=== PATIENT | female | born 1965 | race Caucasian/White ===

== ENCOUNTER → 2017-10-16 | Outpatient (CLI) | payer OTHER ==
--- NOTE | 2017-10-16 16:49 | WWHP ---
[facility] - HISTORY AND PHYSICAL CHIEF COMPLAINT: The patient is here for her routine gynecologic exam and mammogram. HPI: This is a 51-year-old, G2, P2, with an LMP of 2011. The patient is without gynecologic complaints and denies any postmenopausal bleeding. PAST MEDICAL HISTORY: Chronic left hip problems. MEDICATIONS: Xanax p.r.n. for insomnia that she states she uses this infrequently. Also, vitamin D 2000 units daily. ALLERGIES: No known drug allergies. PAST SURGICAL HISTORY: section with tubal ligation and abdominoplasty in the past. 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 SOCIAL HISTORY: She denies tobacco and drug use and has about 4 alcohol-containing drinks per year. She is a , but is now with her ex-, which was with her 1st marriage. She states she is not sexually active. 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 FAMILY HISTORY: Father had lung cancer. REVIEW OF SYSTEMS: She has lost about 10 pounds over the last year and this has been with diet and exercise. She denies respiratory, cardiac or GI problems. PHYSICAL EXAM: Blood pressure 119/68, height 5 feet 0 inches, weight 160 pounds, temperature 97.8, pulse 77, BMI 31. This is a well-developed, well-nourished, white female, who is alert and oriented x3, in no acute distress. HEENT: Within normal limits. NECK: Supple without mass or thyromegaly. CHEST AND LUNGS: Clear to auscultation. HEART: Regular rate and rhythm breasts are without mass or discharge. Axillary exam is negative for adenopathy. BACK: Negative for CVA tenderness. ABDOMEN: Soft, nontender, without palpable masses. PELVIC EXAM: External genitalia reveals mild atrophy without lesions. Cervix and vagina reveals mild atrophy without lesions. There is no evidence of prolapse. The uterus is mid position, nongravid size and nontender. There are no palpable adnexal masses or tenderness. Rectovaginal exam is negative for mass or tenderness and is negative for occult blood. EXTREMITIES: Nontender. IMPRESSION: 51-year-old menopausal female with normal gynecologic exam. PLAN: 1. Pap smear was performed. 2. Self breast examination was discussed. 3. Mammogram will be done today. 4. Osteoporosis prevention was discussed. 5. I have recommended screening colonoscopy. She states she will do this through her primary care physician, Dr. Hamlin. 6. She will return in 1 year. HERB / ADILIA: [id number] /
--- NOTE | 2017-10-17 10:21 | MM ---
Reason for exam: screening (asymptomatic). Last mammogram was performed 1 year and 1 month ago. History: Patient is postmenopausal. Took hormonal contraceptives for 1 year. Physical Findings: A clinical breast exam by your physician is recommended on an annual basis and results should be correlated with mammographic findings. MG Screening Mammo w CAD Bilateral CC and MLO view(s) were taken. Prior study comparison: September 12, 2016, bilateral MG screening mammo w CAD. September 07, 2015, bilateral MG screening mammo w CAD. There are scattered fibroglandular densities. No suspicious abnormality. No significant changes when compared with prior studies. ASSESSMENT: Negative, BI-RAD 1 RECOMMENDATION: Routine screening mammogram of both breasts in 1 year.
== END | disposition home or self-care (01) ==
LOC: WWCWWP 15:11
PROVIDERS: ATTEND Obstetrics & Gynecology
DX: Z12.31 Encounter for screening mammogram for malignant neoplasm of breast (principal)

== ENCOUNTER → 2018-08-08 | Outpatient (CLI) | payer OTHER ==
[2018-08-08 13:28] VITALS: PULSE 79; RESP 16
[2018-08-08 13:33] VITALS: BP 136/83
--- NOTE | 2018-08-08 13:49 | P.PN ---
Subjective Progress Note Date: 08/08/18 This is a 52-year-old female with history of left hip pain mostly on the lateral aspect of the left hip and sometimes wraps around to the left groin anteriorly. She does get some mild lower back pain from time to time but this is not her main complaint. The patient denies any numbness or tingling in the lower extremities or any weakness. She also denies any bowel or bladder dysfunction. She had a greater trochanter bursa steroid injection last year in our clinic which lasted for about one year with very good pain relief. Her lumbar spine MRI that was done in 2014 showed significant facet arthropathy at L4 5 level. her left hip pain does not get worse with weight-bearing activity however. Today, pt denies new-onset weakness, bowel/bladder incontinence, or any other signs or symptoms of cauda equina syndrome. There are no signs of acute intoxication, and no indications of medication diversion or overuse. In addition to above, 13-point review of systems is also negative for chest pain , shortness of breath, changes in vision, changes in hearing, new onset weakness , abdominal pain, diarrhea, extreme fatigue, malaise, fever, skin changes, homicidal or suicidal ideation, or bowel or bladder incontinence. Vital Signs: Reviewed in EMR Gen: AAOx3, NAD HEENT: PERRLA,hearing grossly normal Pulm: resp unlabored,CTA Heart:S1,S2, No Mur Neck: supple, trachea midline Neuro exam of the lower extremities: Absent left ankle reflex however the rest of the neuro exam of the lower extremities is within normal limits Straight leg raising test: Negative She has significant pain in her left hip with external rotation of the hip Neuro: CN II-XII grossly intact, Imaging: Reviewed in EMR/chart Assessment: Left greater trochanter bursitis Left hip osteoarthritis Lumbar spondylosis without myelopathy due to severe facet arthropathy at the L4 5 level Plan: 1. Explanation: Opioid and psychological risk scores were reviewed. Diagnoses , prognoses, and multiple treatment options including but not limited to physical therapy, interventional therapies, adjuvant medical therapies, narcotic medication therapies, and surgery were discussed with the patient and all questions were answered to the patient's satisfaction. 2. Opioid agreement: The patient does not receive opioids 3. Counseling: The patient was counseled extensively on SMOKING CESSATION, BODY MASS INDEX, EXERCISE. Specifically, the patient was instructed regarding the importance of smoking cessation, obesity, and exercise in the context of both chronic pain and overall health. 4. Procedures: Scheduled for left greater trochanter bursa steroid injection. She might need intra-articular injection in the future and also a diagnostic lumbar medial branch block for lower back pain becomes an issue. 5. Consultations: None. She does have an absent left ankle reflex. 6. Investigations: None 7. Medications: None 8. Disposition: Return to clinic for the above-mentioned procedure Objective - Vital Signs Vital signs: Vital Signs Temp Pulse 79 08/08/18 13:15 Resp 16 08/08/18 13:15 BP 136/83 08/08/18 13:15 Pulse Ox Intake & Output 08/07/18 08/08/18 08/08/18 18:59 06:59 18:59 Weight 77.111 kg
== END | disposition home or self-care (01) ==
LOC: PNWHC3 12:55
PROVIDERS: ATTEND Anesthesiology
DX: M16.12 Unilateral primary osteoarthritis, left hip (principal); M70.62 Trochanteric bursitis, left hip; M47.816 Spondylosis without myelopathy or radiculopathy, lumbar region; M46.86 Other specified inflammatory spondylopathies, lumbar region
CPT/HCPCS: 99211

== ENCOUNTER 2018-08-26 09:51 | Day surgery (SDC) | payer OTHER ==
[2018-08-21 12:32] VITALS: BMI 33.2
[~2018-08-26 09:51] MED LIST: LACTATED RINGERS 1,000 ML IV SCH
[2018-08-26 10:04] VITALS: TEMP 97
[2018-08-26] MEDS ORDERED: LIDOCAINE 1% 20 ML VIAL (10MG/ML) FOR IV START INTRADERMA ONE (10:04)
--- NOTE | 2018-08-26 11:30 | P.PCN ---
Date of Procedure: 08/26/18 Procedure(s) Performed: Pre OP diagnoses= Left trochanteric bursitis . Postoperative diagnosis= Left trochanteric bursitis. Operation= Left trochanteric bursa steroid injection under fluoroscopy guidance. Anesthesia= moderate sedation with IV , Versed 2 mg and fentanyl 50 micrograms and local infiltration with lidocaine 1% 2 mL . Complications= none . Description of the procedure= patient had history of severe low back pain and hip pain secondary to trochanteric bursitis for this reason patient was a good candidate to have Left trochanteric bursa steroid injection which hopefully it will help his pain, risks and benefits of the procedure including but not limited to risk of infection and bleeding and not complete pain relief and ALLERGIC reaction to medication discussed with the patient and the alternative also discussed with the patient and he agreed with the preceding taken to the operating room placed in prone position or standard monitors applied patient and after induction of anesthesia the back and the hip area prepped with chlorhexidine 3 times, and under sterile technique using 25-gauge needle for skin and subcutaneous tissue infiltration was first admitted the Left trochanteric bursa injection at 22-gauge Quincke-type spinal needle advanced slowly under fluoroscopy and placed in the Left trochanteric bursa needle placement confirmed with AP and lateral view and after appropriate needle placement confirmed under fluoroscopy 5 ML of Ropivacaine 0.5% mixed with 40 mg of Kenalog injected after negative aspiration for heme and there was no CSF and there was no paresthesia during the injection and needle removed ,, patient tolerated the procedure well without any complication and she will follow up with the pain clinic in a few weeks and patient discharged home in stable condition
--- NOTE | 2018-08-26 11:39 | FL ---
EXAMINATION TYPE: FL guided needle localization DATE OF EXAM: 08/26/2018 HISTORY: Flouroscopy time 1 seconds of fluoroscopy provided. IMPRESSION: 1. Fluoroscopy time. AYLIND
[2018-08-26] MEDS ORDERED: IV FLUID CONTINUATION 700 ML IV ONE (11:44)
[2018-08-26 12:08] VITALS: RESP 16
[2018-08-26 12:20] VITALS: BP 110/58; PULSE 74
== END 2018-08-26 12:19 | disposition home or self-care (01) ==
LOC: ORPAIN 09:51
PROVIDERS: ATTEND Specialist
DX: M70.62 Trochanteric bursitis, left hip (principal)
CPT/HCPCS: 77002; 20610; J2250; J1030; J3010

== ENCOUNTER 2018-09-16 08:00 | Day surgery (SDC) | payer OTHER ==
[2018-09-10 10:07] VITALS: BMI 33.2
[2018-09-16 07:15] VITALS: RESP 18; TEMP 96.5
[~2018-09-16 08:00] MED LIST changes: -LACTATED RINGERS 1,000 ML IV SCH; +SODIUM CHLORIDE 0.9% 500 ML 500 ML IV SCH
--- NOTE | 2018-09-16 08:23 | P.PCN ---
Date of Procedure: 09/16/18 Procedure(s) Performed: Pre OP diagnoses= Left trochanteric bursitis . Postoperative diagnosis= Left trochanteric bursitis. Operation= Left trochanteric bursa steroid injection under fluoroscopy guidance. Anesthesia= moderate sedation with IV , Versed 2 mg and fentanyl 50 micrograms and local infiltration with lidocaine 1% 2 mL . Complications= none . Description of the procedure= patient had history of severe low back pain, and left hip pain secondary to left trochanteric bursitis for this reason patient was a good candidate to have bilateral trochanteric bursa steroid injection which hopefully it will help his pain, risks and benefits of the procedure including but not limited to risk of infection and bleeding and not complete pain relief and ALLERGIC reaction to medication discussed with the patient and the alternative also discussed with the patient and he agreed with the preceding taken to the operating room placed in prone position or standard monitors applied patient and after induction of anesthesia the back and the hip area prepped with chlorhexidine 3 times, and under sterile technique using 25-gauge needle for skin and subcutaneous tissue infiltration for the left trochanteric bursa injection at 22-gauge Quincke-type spinal needle advanced slowly under fluoroscopy, and placed in the left trochanteric bursa needle placement confirmed with AP and lateral view and after appropriate needle placement confirmed under fluoroscopy 5 ML of Ropivacaine 0.5% mixed with 40 mg of Kenalog injected after negative aspiration for heme and there was no CSF and there was no paresthesia during the injection and needle removed , patient tolerated the procedure well without any complication and she will follow up with the pain clinic in a few weeks and patient discharged home in stable condition
[2018-09-16 08:43] VITALS: BP 112/67; PULSE 78
--- NOTE | 2018-09-16 09:00 | FL ---
EXAMINATION TYPE: FL guided pain mgmt statistic DATE OF EXAM: 09/16/2018 HISTORY: Flouroscopy time 1 seconds of fluoroscopy provided. IMPRESSION: 1. Fluoroscopy time.
== END 2018-09-16 10:30 | disposition home or self-care (01) ==
LOC: ORPAIN 08:00
PROVIDERS: ATTEND Specialist
DX: M70.62 Trochanteric bursitis, left hip (principal); Z78.0 Asymptomatic menopausal state; Z98.51 Tubal ligation status
CPT/HCPCS: 20610; J2250; J3301; J3010

== ENCOUNTER → 2018-10-21 | Outpatient (CLI) | payer OTHER ==
[2018-10-21 11:47] VITALS: BP 139/81; PULSE 76; RESP 16
--- NOTE | 2018-10-21 12:39 | P.PAINPG ---
Subjective Progress Note Date: 10/21/18 This is Follow up visit for this 52 years old female with a chronic history of severe left hip pain diagnosed with left trochanteric bursitis, we have done a left trochanteric bursa steroid injection, and that helped the pain significantly , patient currently complaining of severe right hip pain which increased with activities especially walking ,pain intensity increased over time , she denies any initiating event, no history of trauma, no motor or sensory deficits, no weakness, no night sweats, pain improved with complete rest, she denies any numbness or tingling sensation and she described the pain as aching pain in the left hip area Physical Examinations : 1-Constitutional : Cooperative , not in acute distress . 2-HEENT : nech ; supple , no Lymphadenopathy , no Thyromegaly , normal thyroid size , eyes : no ptosis , no icterus, no photophobia . ENT : hard of hearing , normal oropharynx , no Thrush . 3- Respiratory : Chest clear to auscultations Bilaterally , no wheezing , no Rhonchi . . 4- Cardiovascular : regular rate and rhythem , S1 , S2 , no S3 , no S4. 5- Gastrointestinal: abdomen soft no tenderness , no organomegally . 6- Genitourinary : Defferred . 7-Integumentary : No cellulitis , no ulcers , normal skin turgor , no cyanotic . 8- neurologic : Cranial nerve II to XII intact , no focal neurological deffecit 9-psychatric : alert , oriented X 3 , appropriate affect , intact judgment and insight . 10-Lymphatic : no Lymphadenopathy. 11- musculoskeltal: exams of the Lumber spine = normal moter stegnth lower extremities ,thigh and legs 5/5 deep tendon reflexes : normal Knee Jerk , normal ankle Jerk Negative lumber facet Loading Test Severe tenderness over the right the country for several, Flexion and lateral rotation of the right hip joint associated with some pain. Results Labs: MRI of the right hip osteoarthritis changes and there is subchondrial cyst Assessment and Plan Plan: Assessment and plan=1-Trechonteric bursitis right hip, patient could benefit from a right trochanter bursa steroid injection under fluoroscopy guidance Objective - Vital Signs Vital signs: Vital Signs Temp Pulse 76 10/21/18 11:40 Resp 16 10/21/18 11:40 BP 139/81 10/21/18 11:40 Pulse Ox Intake & Output 10/20/18 10/21/18 10/21/18 18:59 06:59 18:59 Weight 77.111 kg PQRS Measure Charge Sheet Measure #130: Documentation of Current Meds in Medical Chart: Patient's medications documented in chart Measure #226: Tobacco Use: Screen & Cessation Intervention: Pt not a tobacco user Measure #111: Pneumonia Vaccination: Pneumococcal vaccine NOT administered or previously given Measure #47: Advance Care Plan: Advance care planning discussed & documented, pt chose/unable to give Measure #412: Opioid Treatment Agreement: No documentation of signed opioid treatment agreement Measure #408: Opioid Therapy Follow-up Evaluation: Patient had NO f/u eval minimum every 3 months during opioid therapy Measure #317: Preventitive Care & Scrn High Bld Press & F/U: Normal blood pressure, f/u not required Measure #128: Body Mass Index (BMI) Screening & Follow-up: BMI documented BELOW normal parameters - f/u documented Measure #131: Pain Assessment & Follow-up: Pain positive & plan documented Measure #431: Unhealthy Alcohol Use Preventative Care & Scrn: Patient not identified as an unhealthy alcohol user PQRS Narrative: Smoking Status Never smoker Do You Want the Pneumonia No Vaccine AT THIS TIME? Blood Pressure 139/81 Pain Intensity [Right Hip] 4 Hx Alcohol Use (MH) Yes Home Medications: Ambulatory Orders Calcium Carbonate [Calcium] 600 mg PO DAILY 08/08/18 Cod Liver Oil 1 each PO DAILY 08/08/18 Controlled Substance Measures - Controlled Substance Measures Is patient prescribed a controlled substance at discharge?: No When asked, does pt state using other controlled substances?: No If prescribed controlled substance>3 days was MAPS reviewed?: No If Rx opioid, was Start Talking consent form obtained?: No If opioid is for acute pain is fill amount 7 days or less?: No Was information provided regarding opioid addiction?: No
== END | disposition home or self-care (01) ==
LOC: PNWHC3 11:32
PROVIDERS: ATTEND Specialist
DX: M70.61 Trochanteric bursitis, right hip (principal); Z79.899 Other long term (current) drug therapy
CPT/HCPCS: 99211

== ENCOUNTER 2018-11-11 07:29 | Day surgery (SDC) | payer OTHER ==
[2018-11-08 08:27] VITALS: BMI 33.2
[2018-11-11 07:42] VITALS: TEMP 97.7
[2018-11-11] MEDS ORDERED: LACTATED RINGERS 1,000 ML IV ONE ×3 (07:56→08:47)
--- NOTE | 2018-11-11 08:42 | P.PCN ---
Date of Procedure: 11/11/18 Procedure(s) Performed: Pre OP diagnoses= Right trochanteric bursitis . Postoperative diagnosis= Right trochanteric bursitis. Operation= Right trochanteric bursa steroid injection under fluoroscopy guidance. Anesthesia= moderate sedation with IV , Versed 2 mg and fentanyl 50 micrograms and local infiltration with lidocaine 1% 2 mL . Complications= none . Description of the procedure= patient had history of severe low back pain, and Right hip pain secondary to Right trochanteric bursitis for this reason patient was a good candidate to have Right trochanteric bursa steroid injection which hopefully it will help his pain, risks and benefits of the procedure including but not limited to risk of infection and bleeding and not complete pain relief and ALLERGIC reaction to medication discussed with the patient and the alternative also discussed with the patient and he agreed with the preceding taken to the operating room placed in prone position or standard monitors applied patient and after induction of anesthesia the back and the Right hip area prepped with chlorhexidine 3 times, and under sterile technique using 25-gauge needle for skin and subcutaneous tissue infiltration for the Right trochanteric bursa injection at 22-gauge Quincke-type spinal needle advanced slowly under fluoroscopy, and placed in the Right trochanteric bursa needle placement confirmed with AP and lateral view and after appropriate needle placement confirmed under fluoroscopy 5 ML of Ropivacaine 0.5% mixed with 40 mg of Depo-Medrol injected after negative aspiration for heme and there was no CSF and there was no paresthesia during the injection and needle removed , patient tolerated the procedure well without any complication and she will follow up with the pain clinic in a few weeks and patient discharged home in stable condition
[2018-11-11 09:13] VITALS: BP 140/71; PULSE 60; RESP 18
--- NOTE | 2018-11-11 09:18 | FL ---
EXAMINATION TYPE: FL guided pain mgmt statistic DATE OF EXAM: 11/11/2018 HISTORY: Flouroscopy time 2 seconds of fluoroscopy provided. IMPRESSION: 1. Fluoroscopy time.
== END 2018-11-11 09:14 | disposition home or self-care (01) ==
LOC: ORPAIN 07:29
PROVIDERS: ATTEND Specialist
DX: M70.61 Trochanteric bursitis, right hip (principal)
CPT/HCPCS: 20610; J2250; J1030; J3010

== ENCOUNTER → 2019-03-18 | Outpatient (CLI) | payer OTHER ==
[2019-03-18 09:37] VITALS: BP 141/62; PULSE 82; RESP 18; TEMP 97; BMI 30.2
--- NOTE | 2019-03-18 10:01 | P.HPOB ---
History of Present Illness H&P Date: 03/18/19 Chief Complaint: The patient is here for her routine gynecologic exam and ma mmogram. This is a 53-year-old G2 PII within LMP of 2011. The patient denies any postmenopausal bleeding. She has mild hot flashes. She is otherwise without complaints. Review of Systems The patient has lost 5 pounds over the last year. She denies respiratory, cardiac, or G.I. problems. Past Medical History Past Medical History: Musculoskeletal Disorder Additional Past Medical History / Comment(s): Lower back pain and Lt hip pain. 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 History of Any Multi-Drug Resistant Organisms: None Reported Past Surgical History: Section, Tubal Ligation Additional Past Surgical History / Comment(s): Abdominoplasty. PAIN INJ 2015. PAIN CLINIC PROCEDURES Past Anesthesia/Blood Transfusion Reactions: Motion Sickness Past Psychological History: Anxiety Additional Psychological History / Comment(s): NONE CURRENT Smoking Status: Never smoker Past Alcohol Use History: Rare (0-2 per year) Past Drug Use History: None Reported - Past Family History Father Family Medical History: Cancer Additional Family Medical History / Comment(s): Lung cancer. Medications and Allergies Home Medications Medication Instructions Recorded Confirmed Type Calcium Carbonate [Calcium] 600 mg PO DAILY 08/08/18 03/18/19 History Cod Liver Oil 1 each PO DAILY 08/08/18 03/18/19 History Allergies Allergy/AdvReac Type Severity Reaction Status Date / Time No Known Allergies Allergy Verified 03/18/19 09:33 Exam Vital Signs Temp Pulse Resp BP Pulse Ox 03/18/19 09:33 97.0 F L 82 18 141/62 99 Intake and Output 03/17/19 03/18/19 03/18/19 22:59 06:59 14:59 Other: Weight 70.307 kg Height 5'0", weight 155 pounds, BMI 30.3. This is a well-developed well-nourished white female who is alert and oriented times 3 in no acute distress. HEENT: Within normal limits. NECK: Supple without mass or thyromegaly. CHEST AND LUNGS: Clear to auscultation. HEART: Regular rate and rhythm. BREASTS: Are without mass or discharge. AXILLARY EXAM: Negative for adenopathy. BACK: Negative for CVA tenderness. ABDOMEN: Soft, nontender, without palpable masses. PELVIC EXAM: Normal external genitalia with mild atrophy. Cervix and vagina appear normal with minimal atrophy. There is no unusual discharge. There is no evidence of prolapse. The uterus is midposition, nongravid size and nontender. There are no palpable adnexal masses or tenderness. RECTAL EXAM: rectovaginal exam is negative for mass or tenderness and is negative for occult blood. EXTREMITIES: Nontender. IMPRESSION: 1. 53-year-old menopausal female with normal gynecologic exam. PLAN: 1. Pap smear was deferred since she had a normal one on 10/16/2017. 2. Self breast awareness was discussed with the patient. 3. Screening mammogram will be done today. 4. Osteoporosis prevention was discussed. I have stressed the importance of adequate calcium, vitamin D and regular exercise. Recommended amounts of calcium and vitamin D were also discussed. 5. She was advised to return in one year for her annual well woman exam.
--- NOTE | 2019-03-19 11:20 | MM ---
Reason for exam: screening (asymptomatic). Last mammogram was performed 1 year and 5 months ago. History: Patient is postmenopausal. Took hormonal contraceptives for 1 year. Physical Findings: A clinical breast exam by your physician is recommended on an annual basis and results should be correlated with mammographic findings. MG Screening Mammo w CAD Bilateral CC and MLO view(s) were taken. Prior study comparison: October 16, 2017, bilateral MG screening mammo w CAD. September 12, 2016, bilateral MG screening mammo w CAD. There are scattered fibroglandular densities. No suspicious abnormality. No significant changes when compared with prior studies. ASSESSMENT: Negative, BI-RAD 1 RECOMMENDATION: Routine screening mammogram of both breasts in 1 year.
== END ==
LOC: WWCWWP 09:20
PROVIDERS: ATTEND Obstetrics & Gynecology
DX: Z12.31 Encounter for screening mammogram for malignant neoplasm of breast (principal)
CPT/HCPCS: 77067

== ENCOUNTER → 2019-05-12 | Outpatient (CLI) | payer OTHER ==
[2019-05-12 13:57] VITALS: BP 139/81; PULSE 99; RESP 18
--- NOTE | 2019-05-12 14:13 | P.PN ---
Subjective Progress Note Date: 05/12/19 This is a 53-year-old pleasant lady with history of bilateral hip pain due to trochanter bursitis and osteoarthritis in the hip joints. The patient had trochanter bursa steroid injection previously with very good and prolonged results and the last one she had was in October of this year. The patient's l eft hip pain on the lateral aspect of the hip is getting worse lately and she is requesting another injection of steroids in the left greater trochanter bursa. The pain occasionally wakes her up at night. She does have weight loss but she has been dieting. Today, pt denies new-onset weakness, bowel/bladder incontinence, or any other signs or symptoms of cauda equina syndrome. There are no signs of acute intoxication, and no indications of medication diversion or overuse. In addition to above, 13-point review of systems is also negative for chest pain, shortness of breath, changes in vision, changes in hearing, new onset weakness, abdominal pain, diarrhea, extreme fatigue, malaise, fever, skin changes, homicidal or suicidal ideation, or bowel or bladder incontinence. Vital Signs: Reviewed in EMR Gen: AAOx3, NAD HEENT: PERRLA,hearing grossly normal Pulm: resp unlabored Heart: Regular Neck: supple, trachea midline Neuro exam of the lower extremities: Absent left ankle reflex however the rest of the neuro exam of the lower extremities is within normal limits Straight leg raising test: Negative She has significant pain in her left hip with external rotation of the hip Positive tenderness in the left greater trochanter Neuro: CN II-XII grossly intact, Imaging: Reviewed in EMR/chart Assessment: Left greater trochanter bursitis Left hip osteoarthritis Lumbar spondylosis without myelopathy due to severe facet arthropathy at the L4 5 level Plan: 1. Explanation: Opioid and psychological risk scores were reviewed. Diagnoses, prognoses, and multiple treatment options including but not limited to physical therapy, interventional therapies, adjuvant medical therapies, narcotic medication therapies, and surgery were discussed with the patient and all quest ions were answered to the patient's satisfaction. 2. Opioid agreement: The patient does not receive opioids 3. Counseling: The patient was counseled extensively on SMOKING CESSATION, BODY MASS INDEX, EXERCISE. Specifically, the patient was instructed regarding the importance of smoking cessation, obesity, and exercise in the context of both chronic pain and overall health. 4. Procedures: Scheduled for left greater trochanter bursa steroid injection. 5. Consultations: None. 6. Investigations: None 7. Medications: None 8. Disposition: Return to clinic for the above-mentioned procedure Objective - Vital Signs Vital signs: Vital Signs Temp Pulse 99 05/12/19 13:51 Resp 18 05/12/19 13:51 BP 139/81 05/12/19 13:51 Pulse Ox 99 05/12/19 13:51 Intake & Output 05/11/19 05/12/19 05/12/19 18:59 06:59 18:59 Weight 67.132 kg
== END | disposition home or self-care (01) ==
LOC: PNWHC3 13:46
PROVIDERS: ATTEND Anesthesiology
DX: M16.12 Unilateral primary osteoarthritis, left hip (principal); M70.62 Trochanteric bursitis, left hip; M47.816 Spondylosis without myelopathy or radiculopathy, lumbar region; M46.86 Other specified inflammatory spondylopathies, lumbar region
CPT/HCPCS: 99211

== ENCOUNTER 2019-05-19 06:01 | Day surgery (SDC) | payer OTHER ==
[2019-05-13 16:07] VITALS: BMI 30.4
[~2019-05-19 06:01] MED LIST changes: +LACTATED RINGERS 1,000 ML IV SCH; -SODIUM CHLORIDE 0.9% 500 ML 500 ML IV SCH
--- NOTE | 2019-05-19 07:19 | P.PCN ---
Date of Procedure: 05/19/19 Procedure(s) Performed: Pre OP diagnoses= Left trochanteric bursitis . Postoperative diagnosis= Left trochanteric bursitis. Operation= Left trochanteric bursa steroid injection under fluoroscopy guidance. Anesthesia= local infiltration with lidocaine 1% 2 mL only.. Complications= none . Description of the procedure= patient had history of severe low back pain, and left hip pain secondary to left trochanteric bursitis for this reason patient was a good candidate to have bilateral trochanteric bursa steroid injection which hopefully it will help his pain, risks and benefits of the procedure including but not limited to risk of infection and bleeding and not complete pain relief and ALLERGIC reaction to medication discussed with the patient and the alternative also discussed with the patient and he agreed with the preceding taken to the operating room placed in prone position or standard monitors applied patient ,then the back and the left hip area prepped with chlorhexidine 3 times, and under sterile technique using 25-gauge needle for skin and subcutaneous tissue infiltration for the left trochanteric bursa injection at 25-gauge Quincke-type spinal needle advanced slowly under fluoroscopy, and placed in the left trochanteric bursa needle placement confirmed with AP and lateral view and after appropriate needle placement confirmed under fluoroscopy 5 ML of Ropivacaine 0.5% mixed with 40 mg of Depo-Medrol injected after negative aspiration for heme and there was no CSF and there was no paresthesia during the injection and needle removed , patient tolerated the procedure well without any complication and she will follow up with the pain clinic in a few weeks and patient discharged home in stable condition
[2019-05-19 07:25] VITALS: BP 116/71; PULSE 62; RESP 18
--- NOTE | 2019-05-19 12:08 | FL ---
Fluoroscopy HISTORY: Pain 1 seconds fluoroscopy time supplied to the referring clinician. 1 intraoperative C-arm images docume nt the procedure. See dictated report from anesthesia.
== END 2019-05-19 07:44 | disposition home or self-care (01) ==
LOC: ORPAIN 06:01
PROVIDERS: ATTEND Specialist
DX: M70.62 Trochanteric bursitis, left hip (principal)
CPT/HCPCS: 20610; J1030

== ENCOUNTER 2019-06-02 06:03 | Day surgery (SDC) | payer OTHER ==
[2019-05-28 08:36] VITALS: BMI 28.3
[2019-06-02 06:21] VITALS: TEMP 97.9
--- NOTE | 2019-06-02 07:12 | P.PCN ---
Date of Procedure: 06/02/19 Procedure(s) Performed: Pre OP diagnoses= Left trochanteric bursitis . Postoperative diagnosis= Left trochanteric bursitis. Operation= Left trochanteric bursa steroid injection under fluoroscopy guidance. Anesthesia= local infiltration with lidocaine 1% 2 mL only.. Complications= none . Description of the procedure= patient had history of left hip pain secondary to left trochanteric bursitis for this reason patient was a good candidate to have left trochanteric bursa steroid injection which hopefully it will help his pain, risks and benefits of the procedure including but not limited to risk of infection and bleeding and not complete pain relief and ALLERGIC reaction to medication discussed with the patient and the alternative also discussed with the patient and he agreed with the preceding. She taken to the operating room placed in prone position or standard monitors applied patient ,then the back and the left hip area prepped with chlorhexidine 3 times, and under sterile technique, using 25-gauge needle for skin and subcutaneous tissue infiltration for the left trochanteric bursa injection at 25-gauge Quincke-type spinal needle advanced slowly under fluoroscopy, and placed in the left trochanteric bursa needle placement confirmed with AP and lateral view and after appropriate needle placement confirmed under fluoroscopy, 1mL of omnipaque 180mg/ml was injected with good spread noted along the bursa. Then, 5 ML of Ropivacaine 0.5% mixed with 80 mg of Depo-Medrol injected after negative aspiration for heme. No paresthesia during the injection. Needle removed , patient tolerated the procedure well without any complication and she will follow up with the pain clinic in 8 weeks. Patient discharged home in stable condition
[2019-06-02 07:19] VITALS: BP 122/81; PULSE 62; RESP 16
[2019-06-02] MEDS ORDERED: LACTATED RINGERS 1,000 ML IV SCH (07:19)
--- NOTE | 2019-06-02 09:13 | FL ---
EXAMINATION TYPE: FL guided pain mgmt statistic DATE OF EXAM: 06/02/2019 HISTORY: Flouroscopy time 3 seconds of fluoroscopy provided. IMPRESSION: 1. Fluoroscopy time.
== END 2019-06-02 07:35 | disposition home or self-care (01) ==
LOC: ORPAIN 06:03
PROVIDERS: ATTEND Anesthesiology
DX: M70.62 Trochanteric bursitis, left hip (principal)
CPT/HCPCS: 20610; J1030; Q9966

== ENCOUNTER → 2019-07-21 | Outpatient (CLI) | payer OTHER ==
[2019-07-21 12:38] VITALS: BP 128/63; PULSE 88; RESP 16
--- NOTE | 2019-07-21 15:41 | P.PN ---
Subjective Progress Note Date: 07/21/19 This is Follow up visit for this 53 years old female with a chronic history of severe left hip pain diagnosed with left trochanteric bursitis, we have done a left trochanteric bursa steroid injection, and that helped the pain significantly , patient currently complaining of severe left hip pain which incr eased with activities especially walking ,pain intensity increased over time, no motor or sensory deficits, no weakness, no night sweats, pain improved with complete rest, she denies any numbness or tingling sensation and she described the pain as aching pain in the left hip area Physical Examinations : 1-Constitutional : Cooperative , not in acute distress . 2-HEENT : nech ; supple , no Lymphadenopathy , no Thyromegaly , normal thyroid size , eyes : no ptosis , no icterus, no photophobia . ENT : hard of hearing , normal oropharynx , no Thrush . 3- Respiratory : Chest clear to auscultations Bilaterally , no wheezing , no Rhonchi . . 4- Cardiovascular : regular rate and rhythem , S1 , S2 , no S3 , no S4. 5- Gastrointestinal: abdomen soft no tenderness , no organomegally . 6- Genitourinary : Defferred . 7-Integumentary : No cellulitis , no ulcers , normal skin turgor , no cyanotic . 8- neurologic : Cranial nerve II to XII intact , no focal neurological deffecit 9-psychatric : alert , oriented X 3 , appropriate affect , intact judgment and insight . 10-Lymphatic : no Lymphadenopathy. 11- musculoskeltal: exams of the Lumber spine = normal moter stegnth lower extremities ,thigh and legs 5/5 deep tendon reflexes : normal Knee Jerk , normal ankle Jerk Negative lumber facet Loading Chaya Flexion and lateral rotation of the right hip joint as sociated with some pain. No tenderness over the trochanteric bursa. Flexion and extension and lateral rotation of the left hip associated with pain Assessment and plan=1-Left hip arthralgia, with this secondary to osteoarthritis of the left hip, patient could benefit from left hip steroid injection under fluoroscopy guidance, patient does not have a lease purchase driver with her , for this reason it will be better to do the procedure steroid only diluted with saline and no local anesthetic , and this. Patient will not have any weakness after the procedure, and then she can go home, and drive ,we will not use sedation for the procedure PQRS Measure Charge Sheet Measure #130: Documentation of Current Meds in Medical Chart: Patient's medications documented in chart Measure #226: Tobacco Use: Screen & Cessation Intervention: Pt not a tobacco user Measure #111: Pneumonia Vaccination: Pneumococcal vaccine NOT administered or previously given Measure #47: Advance Care Plan: Advance care planning discussed & documented, pt chose/unable to give Measure #412: Opioid Treatment Agreement: No documentation of signed opioid treatment agreement Measure #408: Opioid Therapy Follow-up Evaluation: Patient had NO f/u eval minimum every 3 months during opioid therapy Measure #317: Preventitive Care & Scrn High Bld Press & F/U: Normal blood pressure, f/u not required Measure #128: Body Mass Index (BMI) Screening & Follow-up: BMI , above the normal parameters - f/u documented Measure #131: Pain Assessment & Follow-up: Pain positive & plan documented Measure #431: Unhealthy Alcohol Use Preventative Care & Scrn: Patient not identified as an unhealthy alcohol user PQRS Narrative: - Controlled Substance Measures Is patient prescribed a controlled substance at discharge?: No When asked, does pt state using other controlled substances?: No If prescribed controlled substance>3 days was MAPS reviewed?: No If Rx opioid, was Start Talking consent form obtained?: No If opioid is for acute pain is fill amount 7 days or less?: No Was information provided regarding opioid addiction?: No Objective - Vital Signs Vital signs: Vital Signs Temp Pulse 88 07/21/19 12:28 Resp 16 07/21/19 12:28 BP 128/63 07/21/19 12:28 Pulse Ox 97 07/21/19 12:28 Intake & Output 07/20/19 07/21/19 07/21/19 18:59 06:59 18:59 Weight 64.41 kg
== END | disposition home or self-care (01) ==
LOC: PNWHC3 12:18
PROVIDERS: ATTEND Specialist
DX: G89.29 Other chronic pain (principal); M16.12 Unilateral primary osteoarthritis, left hip; M70.62 Trochanteric bursitis, left hip
CPT/HCPCS: 99211

== ENCOUNTER 2019-07-31 09:52 | Day surgery (SDC) | payer OTHER ==
[2019-07-31 10:29] VITALS: RESP 16; TEMP 97.3
--- NOTE | 2019-07-31 11:43 | P.PCN ---
Date of Procedure: 07/31/19 Procedure(s) Performed: Preoperative diagnoses = left hip joint osteoarthritis. Postoperative diagnoses= same Procedure= intra-articular left hip injection with fluoroscopy Anesthesia= local anesthetic with lidocaine 1%, no IV sedation Fluoroscopy was used for the procedure and fluoroscopic images saved to chart Procedure indication= patient with a history of severe hip pain secondary to osteoarthritis which is not responsive to the conservative treatment. Description of the procedure= patient was seen and identified in the preoperative holding area, risk and benefits , complications ,and alternatives of the procedure were discussed with the patient and patient agreed with the preceding, patient signed the consent and IV was started and vital signs were monitored throughout the procedure and it was stable. The patient was taken to the operating room and placed in supine position the groin area was prepped with chlorhexidine and draped with the standard fashion, AP and lateral fluoroscopy was used to identify the junction of the head and neck of the femur. Skin and subcutaneous tissue was infiltrated with 2 mL of 1% lidocaine. a 22-gauge 3.5" Quincke spinal needle was advanced through the skin and subcutaneous tissue into the hip joint using a lateral approach. After negative aspiration,.2 MLS of Isovue 200 was injected, revealing intra-articular spread. Then the treatment solution of 4 cc preservative-free normal saline with 40 mg of Kenalog injected. The patient tolerated the procedure well without any complications. No local anesthetic was injected into the hip joint as the patient does not have a regional intermodal truck driver. Complications= there was no acute complication identified. Disposition= patient was placed advanced supine position and transferred to recovery room in stable condition for observation and was discharged home after meeting discharge criteria, and discharge instruction was given and patient will follow up in the pain clinic in a few weeks
--- NOTE | 2019-07-31 11:56 | FL ---
EXAMINATION TYPE: FL guided pain mgmt statistic DATE OF EXAM: 07/31/2019 HISTORY: Flouroscopy time 7 seconds of fluoroscopy provided. IMPRESSION: 1. Fluoroscopy time.
[2019-07-31 12:09] VITALS: BP 137/81; PULSE 60
== END 2019-07-31 12:10 | disposition home or self-care (01) ==
LOC: ORPAIN 09:52
PROVIDERS: ATTEND Anesthesiology
DX: G89.29 Other chronic pain (principal); M16.12 Unilateral primary osteoarthritis, left hip
CPT/HCPCS: 20610; J3301; Q9966

== ENCOUNTER → 2019-08-25 | Outpatient (CLI) | payer OTHER ==
[2019-08-25 13:08] VITALS: BP 142/88; PULSE 81; RESP 15
--- NOTE | 2019-08-25 13:58 | P.PAINPG ---
Subjective Progress Note Date: 08/25/19 This is a follow up visit for this 53 year old female with a chronic history of severe left hip pain diagnosed with left trochanteric bursitis and left hip osteoarthritis, in the past, we have done a left trochanteric bursa steroid injection, and that helped the pain significantly , most recently, we have done a left hip intra-articular steroid injection on 07/31/2019 and the patient returns today for follow-up. She reports that she experienced significant relief from this and is currently not having any pain. She also reports that she has recently lost 30 pounds. She continues to do exercise in the form of walking. Review of systems is negative for chest pain, shortness of breath, changes in vision, changes in hearing, new onset weakness, abdominal pain, diarrhea, extreme fatigue, malaise, fever, skin changes, homicidal or suicidal ideation, or bowel or bladder incontinence. Physical exam: Vitals: Reviewed in EMR GENERAL: Well appearing, in no acute distress PSYCH: Mood and affect is appropriate. Awake, alert, and oriented SKIN: Skin color, texture, turgor normal, no rashes or lesions HEENT: Normocephalic, atraumatic. EOM intact CV: No pedal edema RESP: Respirations are unlabored, no audible wheezing GI: Abdomen non-distended MUSCULOSKELETAL: Bilateral upper and lower extremity strength is normal and symmetric. No atrophy or tone abnormalities are noted. Gait: Gait is normal NEUR: Annual nerves grossly intact Assessment and plan=1-Left hip arthralgia, with this secondary to osteoarthritis of the left hip, patient experienced complete relief from recent left hip steroid injection under fluoroscopy guidance. Follow-up: When necessary for repeat left hip intra-articular steroid injection. Patient will call to schedule this. Patient has had prior procedures without sedation. We also did not use local anesthetic in the intra-articular hip injection to avoid leg weakness. PQRS Measure Charge Sheet Measure #130: Documentation of Current Meds in Medical Chart: Patient's medications documented in chart Measure #226: Tobacco Use: Screen & Cessation Intervention: Pt not a tobacco user Measure #111: Pneumonia Vaccination: Pneumococcal vaccine NOT administered or previously given Measure #47: Advance Care Plan: Advance care planning discussed & documented, pt chose/unable to give Measure #412: Opioid Treatment Agreement: No documentation of signed opioid treatment agreement Measure #317: Preventitive Care & Scrn High Bld Press & F/U: Pre-hypertensive or hypertensive BP documented, pt will f/u with PCP Measure #128: Body Mass Index (BMI) Screening & Follow-up: BMI documented within normal parameters Measure #131: Pain Assessment & Follow-up: Pain positive & plan documented, Follow-up PRN Measure #431: Unhealthy Alcohol Use Preventative Care & Scrn: Patient not identified as an unhealthy alcohol user PQRS Narrative: Smoking Status Never smoker Hx Alcohol Use (MH) Yes Home Medications: Ambulatory Orders Calcium Carbonate [Calcium] 600 mg PO DAILY 08/08/18 Cod Liver Oil 1 each PO DAILY 08/08/18 Ibuprofen [Motrin Ib] 300 mg PO Q6H PRN 05/13/19 Controlled Substance Measures - Controlled Substance Measures Is patient prescribed a controlled substance at discharge?: No
== END | disposition home or self-care (01) ==
LOC: PNWHC3 12:35
PROVIDERS: ATTEND Anesthesiology
DX: M16.7 Other unilateral secondary osteoarthritis of hip (principal); Z79.1 Long term (current) use of non-steroidal anti-inflammatories (NSAID); Z79.899 Other long term (current) drug therapy
CPT/HCPCS: 99211

== ENCOUNTER → 2020-02-09 | Outpatient (CLI) | payer OTHER | END | disposition home or self-care (01) | CPT/HCPCS: 99211 ==

== ENCOUNTER → 2020-05-04 | Outpatient (CLI) | payer OTHER | END | disposition home or self-care (01) | LOC: LABWHC1 10:18 | PROVIDERS: ATTEND Family Medicine | DX: Z11.59 Encounter for screening for other viral diseases (principal) ==

== ENCOUNTER → 2020-05-06 | Day surgery (SDC) | payer OTHER ==
[2020-05-05 09:11] VITALS: BMI 29.2
[~2020-05-06] MED LIST changes: +IOPAMIDOL M200 10 ML VIAL ONE; +ROPIVACAINE 5MG/ML 20ML VIAL ONE; +methylPREDNISolone ACETATE 40 MG/ML 1 ML VIAL ONE
[2020-05-06 09:34] VITALS: RESP 16; TEMP 97.4
--- NOTE | 2020-05-06 10:22 | P.PCN ---
Date of Procedure: 05/06/20 Description of Procedure: Preoperative diagnoses: Left hip joint osteoarthritis. Postoperative diagnoses: same Procedure: intra-articular left hip injection with fluoroscopy Anesthesia: local anesthetic with lidocaine 1%, no IV sedation Fluoroscopy was used for the procedure and fluoroscopic images saved to chart Procedure indication: Patient with a history of severe hip pain secondary to osteoarthritis which is not responsive to the conservative treatment. Description of the procedure= patient was seen and identified in the preoperative holding area, risk and benefits , complications ,and alternatives of the procedure were discussed with the patient and patient agreed with the preceding, patient signed the consent and IV was started and vital signs were monitored throughout the procedure and it was stable. The patient was taken to the operating room and placed in supine position the groin area was prepped with chlorhexidine and draped with the standard fashion, AP and lateral fluoroscopy was used to identify the junction of the head and neck of the femur. Skin and subcutaneous tissue was infiltrated with 2 mL of 1% lidocaine. a 22-gauge 3.5" Quincke spinal needle was advanced through the skin and subcutaneous tissue into the hip joint using a lateral approach. After negative aspiration,.2 MLS of Isovue 200 was injected, revealing intra-articular spread. Then the treatment solution of 4 cc preservative-free normal saline with 40 mg of Depomedrol injected. The patient tolerated the procedure well without any complications. No local anesthetic was injected into the hip joint as the patient does not have a delivery driver. Complications: there was no acute complication identified. Disposition: Patient was placed advanced supine position and transferred to recovery room in stable condition for observation and was discharged home after meeting discharge criteria, and discharge instruction was given and patient will follow up in the pain clinic in a few weeks
--- NOTE | 2020-05-06 10:24 | P.GSHP ---
History of Present Illness H&P Date: 05/06/20 54-year-old who presents for left ventricular injection. She had a previous injection that provided him with greater than 80% relief. She is having pain with external rotation and hip flexion. VAS today ranges from 5-7 out of 10 in severity. - Review of Systems Comment: Review of Systems 1. Constitutional: No chills , no fever , no night sweats , no change of appetite, no lethargy 2. Ears: No ear ache, no ear discharge , no change in hearing 3. Nose, Mouth ,Throat; No bleeding gums, no sore throat , no epistaxis , no hoarseness , no voice change 4. Cardiovascular: Denies chest pain, no palpitation , no paroxysmal nocturnal dyspnea , no leg edema 5. Respiratory: Denies cough , no dyspnea , no hemoptysis , no sleep apnea, no wheezing 6. Gastrointestinal: No abdominal pain , no bloating , no change in bowel habits , no coffee-ground emesis , No melena , no jaundice , no nausea , no vomiting 7. Genitourinary: No hematuria , no discharge 8. Musculoskeletal: As per HPI 9. Neurological: No ataxia , no aphasia ,no balance difficulties, no change in visions , no change in speech , no tremor . 10. Psychatric: depression , no suicidal ideation, 11. Hematologic: No easy bleeding, no easy brusing. 12. Integumentary: No brttle nails, no change hair , no hirsutism no depigmentation , no foot/leg ulcers . Past Medical History Past Medical History: Musculoskeletal Disorder Additional Past Medical History / Comment(s): HIP PAIN History of Any Multi-Drug Resistant Organisms: None Reported Past Surgical History: Section, Tubal Ligation Additional Past Surgical History / Comment(s): Abdominoplasty. PAIN CLINIC PROCEDURES. Past Anesthesia/Blood Transfusion Reactions: No Reported Reaction, Motion Sickness Past Psychological History: Anxiety Additional Psychological History / Comment(s): . Smoking Status: Never smoker Past Alcohol Use History: Rare Past Drug Use History: None Reported - Past Family History Father Family Medical History: Cancer Additional Family Medical History / Comment(s): Lung cancer. Medications and Allergies Home Medications Medication Instructions Recorded Confirmed Type Calcium Carbonate [Calcium] 600 mg PO DAILY 08/08/18 05/06/20 History Cod Liver Oil 1 each PO DAILY 08/08/18 05/06/20 History Ergocalciferol [Vitamin D2] 50,000 unit PO QMONTH 02/03/20 05/06/20 History ALPRAZolam [Xanax] 1 mg PO HS 05/05/20 05/06/20 History Ibuprofen 400 mg PO DIRECTED PRN 05/05/20 05/06/20 History Krill Oil 1 tab PO DAILY 05/05/20 05/06/20 History Allergies Allergy/AdvReac Type Severity Reaction Status Date / Time No Known Allergies Allergy Verified 05/06/20 09:49 Surgical - Exam Vital Signs Temp Pulse Resp BP Pulse Ox 97.4 F L 69 16 138/65 100 05/06/20 09:29 05/06/20 09:29 05/06/20 09:29 05/06/20 09:29 05/06/20 09:29 Left hip exam: Pain with range of motion, positive crepitus. Pain with external rotation and limited secondary to pain. Assessment and Plan Assessment: Left hip osteoarthritis Plan: We'll perform a left hip intra-articular joint injection under fluoroscopy.
[2020-05-06 11:03] VITALS: BP 119/71; PULSE 64
--- NOTE | 2020-05-06 11:10 | FL ---
EXAMINATION TYPE: FL guided pain mgmt statistic DATE OF EXAM: 05/06/2020 HISTORY: Fluoroscopy time 5 seconds of fluoroscopy provided. IMPRESSION: 1. Fluoroscopy time.
== END ==
LOC: ORPAIN 08:59
PROVIDERS: ATTEND Anesthesiology
DX: M16.12 Unilateral primary osteoarthritis, left hip (principal); R20.0 Anesthesia of skin; F41.9 Anxiety disorder, unspecified; Z87.39 Personal history of other diseases of the musculoskeletal system and connective tissue; Z98.890 Other specified postprocedural states; Z98.51 Tubal ligation status; Z87.898 Personal history of other specified conditions; Z79.899 Other long term (current) drug therapy; Z79.1 Long term (current) use of non-steroidal anti-inflammatories (NSAID); Z78.0 Asymptomatic menopausal state; Z80.1 Family history of malignant neoplasm of trachea, bronchus and lung
CPT/HCPCS: 77002; 20610; J1030; Q9966; J2795

== ENCOUNTER → 2020-08-03 | Outpatient (CLI) | payer OTHER ==
[2020-08-03 10:39] VITALS: BP 127/83; PULSE 83; RESP 18; TEMP 98
--- NOTE | 2020-08-03 11:10 | P.HPOB ---
History of Present Illness H&P Date: 08/03/20 Chief Complaint: The patient is here for her routine gynecologic exam and ma mmogram. This is a 54-year-old with an LMP of 2011. The patient is without gynecologic complaints and denies any postmenopausal bleeding. Review of Systems The patient has lost 6 pounds over the last year. She denies respiratory, cardiac, or G.I. problems. Musculoskeletal: She has been having some neck issues and is seeing a chiropractor for this. Past Medical History Past Medical History: Musculoskeletal Disorder Additional Past Medical History / Comment(s): Chronic low back and hip problems. 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 History of Any Multi-Drug Resistant Organisms: None Reported Past Surgical History: Section, Tubal Ligation Additional Past Surgical History / Comment(s): Abdominoplasty. PAIN CLINIC PROCEDURES. Colonoscopy 2019(next after 10yr) Past Anesthesia/Blood Transfusion Reactions: Motion Sickness Past Psychological History: Anxiety Additional Psychological History / Comment(s): NONE CURRENT Smoking Status: Never smoker Past Alcohol Use History: Rare (2 per year) Past Drug Use History: None Reported Additional History: She is and was a from her second marriage. She now lives with her first ex- and is not sexually active. 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 - Past Family History Father Family Medical History: Cancer Additional Family Medical History / Comment(s): Lung cancer. Medications and Allergies Home Medications Medication Instructions Recorded Confirmed Type Calcium Carbonate [Calcium] 600 mg PO DAILY 08/08/18 08/03/20 History Cod Liver Oil 1 each PO DAILY 08/08/18 08/03/20 History Ergocalciferol [Vitamin D2] 50,000 unit PO QMONTH 02/03/20 08/03/20 History ALPRAZolam [Xanax] 1 mg PO HS 05/05/20 08/03/20 History Ibuprofen 400 mg PO DIRECTED PRN 05/05/20 08/03/20 History Krill Oil 1 tab PO DAILY 05/05/20 08/03/20 History Allergies Allergy/AdvReac Type Severity Reaction Status Date / Time No Known Allergies Allergy Verified 08/03/20 10:32 Exam Vital Signs Temp Pulse Resp BP Pulse Ox 08/03/20 10:36 98.0 F 83 18 127/83 98 Intake and Output 08/02/20 08/03/20 08/03/20 22:59 06:59 14:59 Other: Weight 67.585 kg Height 4 feet 11 inches, weight 149 pounds, BMI 30.1. This is a well-developed well-nourished white female who is alert and oriented times 3 in no acute distress. HEENT: Within normal limits. NECK: Supple without mass or thyromegaly. CHEST AND LUNGS: Clear to auscultation. HEART: Regular rate and rhythm. BREASTS: Are without mass or discharge. AXILLARY EXAM: Negative for adenopathy. BACK: Negative for CVA tenderness. ABDOMEN: Soft, nontender, without palpable masses. PELVIC EXAM: Normal external genitalia with mild atrophy. Cervix and vagina appear normal with mild atrophy. The cervix is slightly stenotic secondary to atrophy. There is no unusual discharge. There is no evidence of prolapse. The uterus is midposition, nongravid size and nontender. There are no palpable adnexal masses or tenderness. RECTAL EXAM: Rectovaginal exam is negative for mass or tenderness and is negative for occult blood. EXTREMITIES: Nontender. IMPRESSION: 1. 54-year-old menopausal female with normal gynecologic exam. PLAN: 1. Pap smear was performed. 2. Self breast awareness was discussed with the patient. 3. Screening mammogram will be done today. 4. Osteoporosis prevention was discussed. I have stressed the importance of adequate calcium, vitamin D and regular exercise. Recommended amounts of calcium and vitamin D were also discussed. 5. She was advised to return in one year for her annual well woman exam.
--- NOTE | 2020-08-04 13:06 | MM ---
Reason for exam: screening (asymptomatic). Last mammogram was performed 1 year and 4 months ago. History: Patient is postmenopausal. Took hormonal contraceptives for 1 year. Physical Findings: A clinical breast exam by your physician is recommended on an annual basis and results should be correlated with mammographic findings. MG Screening Mammo w CAD Bilateral CC and MLO view(s) were taken. Prior study comparison: March 18, 2019, bilateral MG screening mammo w CAD. October 16, 2017, bilateral MG screening mammo w CAD. The breast tissue is heterogeneously dense. This may lower the sensitivity of mammography. No significant changes when compared with prior studies. ASSESSMENT: Benign, BI-RAD 2 RECOMMENDATION: Routine screening mammogram of both breasts in 1 year.
== END | disposition home or self-care (01) ==
LOC: WWCWWP 10:26
PROVIDERS: ATTEND Obstetrics & Gynecology
DX: Z12.31 Encounter for screening mammogram for malignant neoplasm of breast (principal)
CPT/HCPCS: 77067

== ENCOUNTER → 2021-09-06 | Outpatient (CLI) | payer OTHER ==
[2021-09-06 11:33] VITALS: BP 132/84; PULSE 66; RESP 14; TEMP 97.4
--- NOTE | 2021-09-06 12:10 | P.HPOB ---
History of Present Illness H&P Date: 09/06/21 Chief Complaint: The patient is here for her routine gynecologic exam and ma mmogram. This is a 55-year-old with an LMP of 2011. The patient is without gynecologic complaints and denies any postmenopausal bleeding. Review of Systems The patient has gained 6 pounds over the last year. She denies respiratory, cardiac, or G.I. problems. Musculoskeletal: She has been having left hip problems and this has been going on for some time. Past Medical History Past Medical History: Musculoskeletal Disorder Additional Past Medical History / Comment(s): Chronic low back and left hip problems. 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 History of Any Multi-Drug Resistant Organisms: None Reported Past Surgical History: Section, Tubal Ligation Additional Past Surgical History / Comment(s): Abdominoplasty. PAIN CLINIC PROCEDURES. Colonoscopy 2019(next after 10yr) Past Anesthesia/Blood Transfusion Reactions: Motion Sickness Past Psychological History: Anxiety Additional Psychological History / Comment(s): NONE CURRENT Smoking Status: Never smoker Past Alcohol Use History: Rare (3 per year) Past Drug Use History: None Reported Additional History: She is and was a from her second marriage. She now lives with her first ex- and is not sexually active. 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 - Past Family History Father Family Medical History: Cancer Additional Family Medical History / Comment(s): Lung cancer. Medications and Allergies Home Medications Medication Instructions Recorded Confirmed Type Calcium Carbonate [Calcium] 600 mg PO DAILY 08/08/18 09/06/21 History Cod Liver Oil 1 each PO DAILY 08/08/18 09/06/21 History Ergocalciferol [Vitamin D2] 50,000 unit PO QMONTH 02/03/20 09/06/21 History ALPRAZolam [Xanax] 1 mg PO HS 05/05/20 09/06/21 History Ibuprofen 400 mg PO DIRECTED PRN 05/05/20 09/06/21 History Krill Oil 1 tab PO DAILY 05/05/20 09/06/21 History Allergies Allergy/AdvReac Type Severity Reaction Status Date / Time No Known Allergies Allergy Verified 09/06/21 11:18 Exam Vital Signs Temp Pulse Resp BP Pulse Ox 09/06/21 11:25 97.4 F L 66 14 132/84 95 Intake and Output 09/05/21 09/06/21 09/06/21 22:59 06:59 14:59 Other: Weight 70.307 kg Height 5 feet 0 inches, weight 155 pounds, BMI 30.3. This is a well-developed well-nourished white female who is alert and oriented times 3 in no acute distress. HEENT: Within normal limits. NECK: Supple without mass or thyromegaly. CHEST AND LUNGS: Clear to auscultation. HEART: Regular rate and rhythm. BREASTS: Are without mass or discharge. AXILLARY EXAM: Negative for adenopathy. BACK: Negative for CVA tenderness. ABDOMEN: Soft, nontender, without palpable masses. PELVIC EXAM: Normal external genitalia with mild atrophy. Cervix and vagina appear normal mild atrophy. There is no unusual discharge. There is no evidence of prolapse. The uterus is midposition, nongravid size and nontender. There are no palpable adnexal masses or tenderness. RECTAL EXAM: Rectovaginal exam is negative for mass or tenderness and is negative for occult blood. EXTREMITIES: Nontender. IMPRESSION: 1. 55-year-old menopausal female with normal gynecologic exam. PLAN: 1. Pap smear was deferred since she had a normal one on 08/03/2020. 2. Self breast awareness was discussed with the patient. We have also discussed symptoms associated with inflammatory breast cancer. 3. Screening mammogram will be done today. 4. Osteoporosis prevention was discussed. I have stressed the importance of adequate calcium, vitamin D and regular exercise. Recommended amounts of calcium and vitamin D were also discussed. 5. She has not received a Covid vaccination. She has concerns about a Covid vaccination. I have tried to address the safety of the Covid vaccination. We have also discussed risks of not getting a Covid vaccination including serious health problems in a percentage of people get Covid. I have asked her to reconsider getting the vaccination. 6. She does plan on getting a flu shot in the near future. 7. She was advised to return in one year for her annual well woman exam.
== END ==
LOC: WWCWWP 11:17
PROVIDERS: ATTEND Obstetrics & Gynecology
DX: Z12.31 Encounter for screening mammogram for malignant neoplasm of breast (principal); Z01.419 Encounter for gynecological examination (general) (routine) without abnormal findings; F41.9 Anxiety disorder, unspecified
CPT/HCPCS: 77067

== ENCOUNTER 2021-11-07 20:43 | Emergency (ER) | payer OTHER ==
[2021-11-07 20:49] VITALS: RESP 18
--- NOTE | 2021-11-07 20:56 | ED ---
General Adult HPI - General Chief complaint: Nausea/Vomiting/Diarrhea Stated complaint: Diarrhea, Lack of taste and smell Time Seen by Provider: 11/07/21 20:52 Source: patient Mode of arrival: ambulatory Limitations: no limitations - History of Present Illness Initial comments: Patient is a 55yo F who presents to the ER today requesting monoclonal antibody therapy for over 19. Patient tested positive on November 02. Patient has nausea vomiting and diarrhea. No chest pain palpitations or shortness of breath. She does have loss of taste and smell. - Related Data Home Medications Medication Instructions Recorded Confirmed Ergocalciferol [Vitamin D2] 50,000 unit PO Q30D 02/03/20 11/07/21 ALPRAZolam [Xanax] 1 mg PO HS 05/05/20 11/07/21 Ondansetron [Zofran] 4 - 8 mg PO Q4H PRN 11/07/21 11/07/21 Allergies Allergy/AdvReac Type Severity Reaction Status Date / Time No Known Allergies Allergy Verified 11/07/21 21:56 Review of Systems ROS Statement: Those systems with pertinent positive or pertinent negative responses have been documented in the HPI. ROS Other: All systems not noted in ROS Statement are negative. Past Medical History Past Medical History: Musculoskeletal Disorder Additional Past Medical History / Comment(s): Chronic low back and left hip problems. 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 History of Any Multi-Drug Resistant Organisms: None Reported Past Surgical History: Section, Tubal Ligation Additional Past Surgical History / Comment(s): Abdominoplasty. PAIN CLINIC PROCEDURES. Colonoscopy 2019(next after 10yr) Past Anesthesia/Blood Transfusion Reactions: Motion Sickness Past Psychological History: Anxiety Smoking Status: Never smoker Past Alcohol Use History: Rare Past Drug Use History: None Reported - Past Family History Father Family Medical History: Cancer Additional Family Medical History / Comment(s): Lung cancer. General Exam - General Exam Comments Initial Comments: Physical Exam GENERAL: Patient is well-developed and well-nourished. Patient is nontoxic and well-hydrated and is in no distress. HENT: Normocephalic, Atraumatic. EYES: PERRL, EOMI PULMONARY: Unlabored respirations. CARDIOVASCULAR: RRR Warm and well perfused extremities ABDOMEN: Non-distended SKIN: No rashes or bruising : Deferred NEUROLOGIC: Alert and oriented Normal speech Normal gait MUSCULOSKELETAL: Moving all extremities with no apparent injury PSYCHIATRIC: No SI/HI Limitations: no limitations Course Vital Signs 11/07/21 11/07/21 20:46 21:10 Temperature 98.3 F Pulse Rate 83 85 Respiratory 18 18 Rate Blood Pressure 120/81 131/78 O2 Sat by Pulse 96 95 Oximetry Medical Decision Making - Medical Decision Making Patient was seen and evaluated history was obtained from patient, patient is a candidate for monoclonal antibody therapies, she does consent to therapy. Monoclonal antibody therapy was ordered. Disposition Clinical Impression: COVID-19 Disposition: HOME SELF-CARE Condition: Stable Additional Instructions: Continue to take and support supplement that contains vitamin C, zinc and vitamin D such as Emergen-C Stay hydrated Call 911 or return to the ER with any chest pain, shortness of breath or development of new or concerning symptoms Is patient prescribed a controlled substance at d/c from ED?: No Referrals: Paco Peñaloza MD [Primary Care Provider] - 1-2 days
[2021-11-07] MEDS ORDERED: SODIUM CHLORIDE 0.9% 50 ML IVPB ONE (21:30)
[2021-11-07] MEDS ORDERED: BAMLANIVIMAB (EUA) 700 MG, ETESEVIMAB (EUA) 1,400 MG in SODIUM CHLORIDE 0.9% 50 ML IVPB ONE (22:00)
[2021-11-08 00:01] VITALS: BP 130/64; PULSE 74; TEMP 98.6
== END 2021-11-08 00:01 | disposition home or self-care (01) ==
LOC: EC 20:43
DX: U07.1 COVID-19 (principal)
CPT/HCPCS: 99283; J3490

== ENCOUNTER → 2022-10-11 | Outpatient (CLI) | payer OTHER ==
[2022-10-11 11:23] VITALS: BP 124/82; PULSE 80; RESP 16; TEMP 98.5
--- NOTE | 2022-10-11 12:01 | P.HPOB ---
History of Present Illness H&P Date: 10/11/22 Chief Complaint: The patient is here for her routine gynecologic exam and ma mmogram. This is a 56-year-old with an LMP of 2011. The patient is without gynecologic complaints and denies any postmenopausal bleeding. Review of Systems The patient has gained 10 pounds over the last year. 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 She denies respiratory, cardiac, or G.I. problems. Past Medical History Past Medical History: Musculoskeletal Disorder Additional Past Medical History / Comment(s): Chronic low back and left hip problems. 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 History of Any Multi-Drug Resistant Organisms: None Reported Past Surgical History: Section, Tubal Ligation Additional Past Surgical History / Comment(s): Abdominoplasty. PAIN CLINIC PROCEDURES. Colonoscopy 2019(next after 10yr) Past Anesthesia/Blood Transfusion Reactions: Motion Sickness Past Psychological History: Anxiety Additional Psychological History / Comment(s): NONE CURRENT Smoking Status: Never smoker Past Alcohol Use History: Rare (0-3 per year) Past Drug Use History: None Reported Additional History: She is and was a from her second marriage. She now lives with her first ex- and is not sexually active. 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 - Past Family History Father Family Medical History: Cancer Additional Family Medical History / Comment(s): Lung cancer. Medications and Allergies Home Medications Medication Instructions Recorded Confirmed Type Ergocalciferol [Vitamin D2] 50,000 unit PO Q30D 02/03/20 10/11/22 History ALPRAZolam [Xanax] 1 mg PO HS 05/05/20 10/11/22 History Allergies Allergy/AdvReac Type Severity Reaction Status Date / Time No Known Allergies Allergy Verified 10/11/22 11:18 Exam Vital Signs Temp Pulse Resp BP Pulse Ox 10/11/22 11:20 98.5 F 80 16 124/82 97 Intake and Output 10/10/22 10/11/22 10/11/22 22:59 06:59 14:59 Other: Weight 74.843 kg Height 4 feet 11 inches, weight 165 pounds, BMI 33.3. This is a well-developed well-nourished white female who is alert and oriented times 3 in no acute distress. HEENT: Within normal limits. NECK: Supple without mass or thyromegaly. CHEST AND LUNGS: Clear to auscultation. HEART: Regular rate and rhythm. BREASTS: Are without mass or discharge. AXILLARY EXAM: Negative for adenopathy. BACK: Negative for CVA tenderness. ABDOMEN: Soft, nontender, without palpable masses. PELVIC EXAM: There is limited range of motion at the hips making it uncomfortable to put her feet both in the stirrups. Only 1 foot was placed in a stirrup and the other leg was placed in a frog legged position. Normal external genitalia with minimal atrophy. Cervix and vagina appear normal with mild atrophy. There is no unusual discharge. There is no evidence of prolapse. The uterus is midposition, nongravid size and nontender. There are no palpable adnexal masses or tenderness. RECTAL EXAM: Rectovaginal exam is negative for mass or tenderness and is negative for occult blood. EXTREMITIES: Nontender. IMPRESSION: 1. 56-year-old menopausal female with normal gynecologic exam. PLAN: 1. Pap smear cotest was performed. 2. Self breast awareness was discussed with the patient. We have also discussed symptoms associated with inflammatory breast cancer. 3. Screening mammogram will be done today. 4. Osteoporosis prevention was discussed. I have stressed the importance of adequate calcium, vitamin D and regular exercise. Recommended amounts of calcium and vitamin D were also discussed. 5. Weight control was discussed. I have stressed the importance of good nutrition, regular meals, adequate fiber and regular activity. 6. She was advised to return in one year for her annual well woman exam.
--- NOTE | 2022-10-12 08:22 | MM ---
Reason for Exam: Screening (asymptomatic). Last mammogram was performed 1 year(s) and 1 month(s) ago. Patient History: Menarche at age 14. First Full-Term at age 18. Postmenopausal. Patient used Hormonal Contraceptives for 1 year. Risk Values: Vika 5 year model risk: 0.8%. NCI Lifetime model risk: 5.2%. Prior Study Comparison: 03/18/2019 Bilateral Screening Mammogram, [facility]. 08/03/2020 Bilateral Screening Mammogram, [facility]. 09/06/2021 Bilateral Screening Mammogram, [facility]. Tissue Density: There are scattered fibroglandular densities. Findings: Analyzed By CAD. There is no suspicious group of microcalcifications or new suspicious mass in either breast. No significant change from prior exams. Overall Assessment: Negative, BI-RAD 1 Management: Screening Mammogram of both breasts in 1 year. A clinical breast exam by your physician is recommended on an annual basis and results should be correlated with mammographic findings. Electronically signed and approved by: Joo Wan D.O.
== END | disposition home or self-care (01) ==
LOC: WWCWWP 11:03
PROVIDERS: ATTEND Obstetrics & Gynecology
DX: Z12.31 Encounter for screening mammogram for malignant neoplasm of breast (principal)
CPT/HCPCS: 77067

== ENCOUNTER → 2023-12-04 | Outpatient (CLI) | payer OTHER ==
[2023-12-04 16:40] VITALS: BP 138/82; PULSE 77; RESP 17; TEMP 98.3
--- NOTE | 2023-12-04 16:47 | P.HPOB ---
History of Present Illness H&P Date: 12/04/23 Chief Complaint: The patient is here for her routine gynecologic exam and ma mmogram. This is a 58-year-old with an LMP of 2011. The patient is without gynecologic complaints and denies any postmenopausal bleeding. Review of Systems The patient has lost 7 pounds over the last year. She denies respiratory or cardiac problems. GI: She noticed a small amount of blood after bowel movement 1 month ago. She denies any blood since then. Past Medical History Past Medical History: Musculoskeletal Disorder Additional Past Medical History / Comment(s): Chronic low back and left hip problems. 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 History of Any Multi-Drug Resistant Organisms: None Reported Past Surgical History: Section, Tubal Ligation Additional Past Surgical History / Comment(s): Abdominoplasty. PAIN CLINIC PROCEDURES. Colonoscopy 2019(next after 5yr) Past Anesthesia/Blood Transfusion Reactions: Motion Sickness Past Psychological History: Anxiety Additional Psychological History / Comment(s): NONE CURRENT Smoking Status: Never smoker Past Alcohol Use History: Rare (0-3 drinks per week.) Past Drug Use History: None Reported Additional History: She is and was a from her second marriage. She now lives with her first ex- and is not sexually active. 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 - Past Family History Father Family Medical History: Cancer Additional Family Medical History / Comment(s): Lung cancer. Medications and Allergies Home Medications Medication Instructions Recorded Confirmed Type Ergocalciferol [Vitamin D2] 50,000 unit PO Q30D 02/03/20 12/04/23 History ALPRAZolam [Xanax] 1 mg PO HS 05/05/20 12/04/23 History Allergies Allergy/AdvReac Type Severity Reaction Status Date / Time No Known Allergies Allergy Verified 12/04/23 15:58 Exam Vital Signs Temp Pulse Resp BP Pulse Ox 12/04/23 16:00 98.3 F 77 17 138/82 96 Intake and Output 12/04/23 12/04/23 12/04/23 06:59 14:59 22:59 Other: Weight 71.668 kg Height 4 feet 11 inches, weight 158 pounds, BMI 31.9. This is a well-developed well-nourished white female who is alert and oriented times 3 in no acute distress. HEENT: Within normal limits. NECK: Supple without mass or thyromegaly. CHEST AND LUNGS: Clear to auscultation. HEART: Regular rate and rhythm. BREASTS: Are without mass or discharge. AXILLARY EXAM: Negative for adenopathy. BACK: Negative for CVA tenderness. ABDOMEN: Soft, nontender, without palpable masses. PELVIC EXAM: Normal external genitalia with mild atrophy. Cervix and vagina appear normal with mild atrophy. There is no unusual discharge. There is no evidence of prolapse. The uterus is midposition, nongravid size and nontender. There are no palpable adnexal masses or tenderness. RECTAL EXAM: Rectovaginal exam is negative for mass or tenderness and is negative for occult blood. EXTREMITIES: Nontender. IMPRESSION: 1. 58-year-old menopausal female with normal gynecologic exam. PLAN: 1. Pap smear was deferred since she had a negative Pap smear cotest on 10/11/2022. 2. Self breast awareness was discussed with the patient. We have also discussed symptoms associated with inflammatory breast cancer. 3. Screening Mammogram will be done today. 4. Osteoporosis prevention was discussed. I have stressed the importance of adequate calcium, vitamin D and regular exercise. Recommended amounts of calcium and vitamin D were also discussed. 5. She will be due for a colonoscopy this year and will arrange this through her PCP. If she has any recurrent blood after bowel movement or any bleeding per rectum, she was instructed to have the colonoscopy even sooner. 6. She was advised to return in one year for her annual well woman exam.
== END ==
LOC: WWCWWP 15:44
PROVIDERS: ATTEND Obstetrics & Gynecology
DX: Z12.31 Encounter for screening mammogram for malignant neoplasm of breast (principal); Z78.0 Asymptomatic menopausal state
CPT/HCPCS: 77067

== ENCOUNTER → 2024-12-23 | Outpatient (CLI) | payer BC ==
[2024-12-23 13:54] VITALS: BP 111/73; PULSE 79; RESP 16; TEMP 97.6
--- NOTE | 2024-12-23 15:00 | P.HPOB ---
History of Present Illness H&P Date: 12/23/24 Chief Complaint: The patient is here for her routine gynecologic exam and ma mmogram. This is a 67-year-old with an LMP of 2011. Patient states she has noticed a slight vaginal discharge over the past 3 weeks. She describes it as a thin yellowish discharge without odor. She denies any postmenopausal bleeding. She denies vulvar or vaginal itching or irritation. She is otherwise without gynecologic complaints. States she has not been sexually active for many years. Review of Systems She has lost about 30 pounds over the past year. She denies respiratory, cardiac, or GI problems. Past Medical History Past Medical History: Musculoskeletal Disorder Additional Past Medical History / Comment(s): Chronic low back and left hip problems. 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 History of Any Multi-Drug Resistant Organisms: None Reported Past Surgical History: Section, Tubal Ligation Additional Past Surgical History / Comment(s): Abdominoplasty. PAIN CLINIC PROCEDURES. Colonoscopy 2019(next after 5yr) Past Anesthesia/Blood Transfusion Reactions: Motion Sickness Past Psychological History: Anxiety Additional Psychological History / Comment(s): NONE CURRENT Smoking Status: Never smoker Past Alcohol Use History: None Reported Past Drug Use History: None Reported Additional History: She is and was a from her second marriage. She now is companions with her first ex- and is not sexually active. 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 - Past Family History Father Family Medical History: Cancer Additional Family Medical History / Comment(s): Lung cancer. Medications and Allergies Home Medications Medication Instructions Recorded Confirmed Type Ergocalciferol [Vitamin D2] 50,000 unit PO Q30D 02/03/20 12/23/24 History ALPRAZolam [Xanax] 1 mg PO HS PRN 05/05/20 12/23/24 History Allergies Allergy/AdvReac Type Severity Reaction Status Date / Time No Known Allergies Allergy Verified 12/23/24 13:46 Exam Vital Signs Temp Pulse Resp BP Pulse Ox 12/23/24 13:49 97.6 F 79 16 111/73 99 Intake and Output 12/22/24 12/23/24 12/23/24 22:59 06:59 14:59 Other: Weight 56.699 kg Height 4 feet 11 inches, weight 125 pounds, BMI 25.2. This is a well-developed well-nourished white female who is alert and oriented times 3 in no acute distress. HEENT: Within normal limits. NECK: Supple without mass or thyromegaly. CHEST AND LUNGS: Clear to auscultation. HEART: Regular rate and rhythm. BREASTS: Are without mass or discharge. AXILLARY EXAM: Negative for adenopathy. BACK: Negative for CVA tenderness. ABDOMEN: Soft, nontender, without palpable masses. PELVIC EXAM: Normal external genitalia with mild atrophy. Cervix and vagina appear normal with mild atrophy. There is a small amount of slightly thin yellowish discharge without odor. There is no evidence of prolapse. The uterus is midposition, nongravid size and nontender. There are no palpable adnexal masses or tenderness. RECTAL EXAM: Rectovaginal exam is negative for mass or tenderness and is negative for occult blood. EXTREMITIES: Nontender. IMPRESSION: 1. 59-year-old menopausal female with slight yellowish vaginal discharge without significant odor. Differential diagnosis will include bacterial vaginosis, Elizabeth vaginitis, and atrophic vaginitis possible physiologic discharge. She states she has not been sexually active for many years and STD testing is not necessary. PLAN: 1. Pap smear is deferred since she had a negative Pap smear cotest on 10/11/2022. 2. Self breast awareness was discussed with the patient. We have also discussed symptoms associated with inflammatory breast cancer. 3. Screening mammogram will be done today. 4. Affirm vaginitis panel was obtained from the vagina. 5. Osteoporosis prevention was discussed. I have recommended a bone density test and this will be a baseline test. The order slip was given to the patient for this. 6. She was advised to return in one year for her annual well woman exam and as needed.
--- NOTE | 2024-12-23 15:21 | MM ---
Reason for Exam: Screening (asymptomatic). Last screening mammogram was performed 12 month(s) ago. Patient History: Menarche at age 14. First Full-Term at age 18. Postmenopausal. Patient used Hormonal Contraceptives for 1 year. Risk Values: Vika 5 year model risk: 0.9%. NCI Lifetime model risk: 4.9%. Prior Study Comparison: 09/06/2021 Bilateral Screening Mammogram, [facility]. 10/11/2022 Bilateral MG screening mammo w CAD, [facility]. 12/04/2023 Bilateral MG screening mammo w CAD, [facility]. Tissue Density: There are scattered areas of fibroglandular density. Findings: Analyzed By CAD. Right breast: There is no suspicious group of microcalcifications or new suspicious mass. Left breast: There is no suspicious group of microcalcifications or new suspicious mass. Overall Assessment: Negative, BI-RAD 1 Management: Screening Mammogram of both breasts in [address] [facility] will attempt to contact patient to return for supplemental views and ultrasound if indicated. Patient should continue monthly self-breast exams. A clinical breast exam by your physician is recommended on an annual basis. This exam should not preclude additional follow-up of suspicious palpable abnormalities. Note on Vika scores and lifetime risk: 1. A Vika score greater than 3% is considered moderate risk. If this is the case, consider specialist referral to assess eligibility for a risk reducing agent. 2. If overall lifetime risk for the development of breast cancer is 20% or higher, the patient may qualify for future screening with alternating mammogram and breast MRI. [facility], , 12/23/2024 3:19 PM. Electronically signed and approved by: Joshua Scott DO
== END ==
LOC: WWCWWP 13:29
PROVIDERS: ATTEND Obstetrics & Gynecology
DX: N95.9 Unspecified menopausal and perimenopausal disorder (principal); N89.8 Other specified noninflammatory disorders of vagina
CPT/HCPCS: 77067

== ENCOUNTER → 2025-01-28 | Outpatient (CLI) | payer BC ==
[2025-01-28 09:06] VITALS: BP 124/81; PULSE 79; RESP 16; TEMP 97.7
--- NOTE | 2025-01-28 09:25 | P.PN ---
Subjective Progress Note Date: 01/28/25 Principal diagnosis: Persistent vaginal discharge status post treatment for bacterial vaginosis. This is a 59-year-old G2, P2 with an LMP of 2012. The patient was seen on 12/23/2024 and was complaining of a thin yellowish discharge without odor. Affirm vaginitis panel was done and was positive for Gardnerella. The patient was treated with 7-day course of oral metronidazole. After the course of antibiotics she continued to have a yellowish-greenish discharge without irrita tion or odor. She used [id number] Monistat. She continued to have some discharge and called about 2 days ago and this appointment was arranged. She states yesterday the discharge seem to be gone. She denies any postmenopausal bleeding. She states she has not been sexually active for more than 1 year. Review of systems: She denies respiratory, cardiac, or GI problems. O: Blood pressure 124/81, height 4 feet 11 inches, weight 126 pounds, BMI 25.4. Temperature 97.7, pulse 79, pulse oximeter 99%. This is a well-developed well-nourished white female who is alert and oriented x 3 in no acute distress. External genitalia: Appears normal with mild atrophy. Cervix and vagina: Reveals mild atrophy. There are no cervical lesions. There is a small amount of slightly yellowish creamy discharge without odor. Cervix does not appear inflamed. Impression: 1. 59-year-old menopausal female status post treatment with oral metronidazole for bacterial vaginosis who continued to have a vaginal discharge. Her symptoms are somewhat improved over the past day. 2. Small vaginal discharge noted on exam today. Differential diagnosis will include persistence of bacterial vaginosis, Elizabeth vaginitis, atrophic vaginitis, and physiologic discharge. Plan: 1. Affirm vaginitis panel was obtained from the vagina. If this is positive for Gardnerella, consider treatment with MetroGel vaginal. Also consider probiotics and Rephresh vaginal gel to lower the pH. I have discouraged her from douching. If the affirm vaginitis panel is negative, consider trial of estradiol vaginal cream for possible atrophic vaginitis. 2. If there is still persistence of vaginal discharge, we will re-question her sexual activity and consider STD testing such as GC and Chlamydia testing. Total time spent with the patient 15 minutes. Objective - Vital Signs Vital signs: Vital Signs Temp 97.7 F 01/28/25 08:52 Pulse 79 01/28/25 08:52 Resp 16 01/28/25 08:52 BP 124/81 01/28/25 08:52 Pulse Ox 99 01/28/25 08:52 FiO2 Intake & Output 01/27/25 01/28/25 01/28/25 18:59 06:59 18:59 Weight 57.153 kg
[2025-01-29 15:22] LABS: Gardnerella Negative (Negative); Trichomonas Negative (Negative)
== END ==
LOC: WWCWWP 08:31
PROVIDERS: ATTEND Obstetrics & Gynecology
DX: N95.1 Menopausal and female climacteric states (principal); N89.8 Other specified noninflammatory disorders of vagina
CPT/HCPCS: 87480; 87510; 87660